=== PATIENT | male | born 1950 | race Two or more races ===

== ENCOUNTER 2024-05-03 09:11 | Inpatient (IN) | payer OTHER ==
[~2024-05-03] VITALS: Ht 165.1 cm; Wt 62.6 kg
[2024-05-03] MEDS ORDERED: TAMS0.4C (09:18)
[2024-05-03] MEDS ORDERED: GLUMETZA500 MG (09:18)
[2024-05-03] MEDS ORDERED: CARVEDILOL6.25 MG (09:18)
[2024-05-03] MEDS ORDERED: COZAAR25 MG (09:18)
[2024-05-03] MEDS ORDERED: XOPENEX HFA15 GM (09:18)
[2024-05-03] MEDS ORDERED: IPRATROPIUM BROMIDE 0.5 MG/2.5 ML AMPUL.NEB IH ONE (09:45)
[2024-05-03] MEDS ORDERED: LEVALBUTEROL HCL 0.63 MG/3 ML SOLUTION IH ONE (09:45)
[2024-05-03] MEDS ORDERED: METHYLPREDNISOLONE SOD SUCC 40 MG VIAL IV ONE (09:45)
[2024-05-03] MEDS ORDERED: PIPERACILLIN/TAZOBACTAM SODIUM 4.5 GM VIAL IV ONE (09:45)
[2024-05-03] MEDS ORDERED: FAMOtidine 10 MG/ML (4ML VIAL) IV ONE (09:45)
[2024-05-03 10:34] LABS: PH,URINE 5.5 (5.0-8.0); URINE APPEARANCE Clear; URINE BILIRRUBIN Negative (NEGATIVE); URINE BLOOD Negative; URINE COLOR Yellow; URINE GLUCOSE Negative (NEGATIVE); URINE KETONE Negative (NEGATIVE); URINE LEUKOCYTE Negative; URINE NITRATE Negative; URINE PROTEIN Negative (NEGATIVE); URINE UROBILINOGEN 0.2 E.U./dl
[2024-05-03 10:36] LABS: HEMATOCRIT 35.3 % (39.0-48.0); HEMOGLOBIN 12.3 g/dL (13-16.00); MEAN CELL VOLUME 88.7 fL (80.0-100.00); MEAN CORPUSCULAR HEMOGLOBIN 30.9 pg (27.00-32.0); MEAN CORPUSCULAR HGB CONC 34.8 g/dl (32.0-36.0); PLATELET COUNT 204 K/uL (150-450); RED BLOOD COUNT 3.98 M/uL (4.00-6.00); RED CELL DISTRIBUTION WIDTH 14.1 % (11.5-14.5)
[2024-05-03 10:38] LABS: URINE BACTERIA 6.2 uL (0.0-1933); URINE EPITHELIAL CELLS 1.5 uL (0.0-38.8); URINE WBC 2.6 uL (0.0-23.2)
[2024-05-03 10:49] LABS: ERYTHROCYTE SEDIMENTATION RATE 42 mm/hr
[2024-05-03 10:56] LABS: INR 1.04; PARTIAL THROMBOPLASTIN TIME 27.6 SECONDS (22.0-34.0); PROTHROMBIN TIME 11.3 SECONDS (9.0-11.5)
[2024-05-03 11:43] LABS: ALBUMIN 3.9 gm/dL (3.4-5.0); BILIRUBIN TOTAL 0.58 mg/dL (0.3-1.2); CALCIUM 9.6 mg/dL (8.5-10.1); CREATININE SERUM 1.48 mg/dL (0.70-1.30); GFR 46.59; GLOBULINA 3.3 G/DL (2.4-3.5); POTASSIUM 4.65 mEq/L (3.5-5.1); TOTAL PROTEIN 7.2 gm/dL (6.4-8.2)
[2024-05-03 11:51] LABS: C-REACTIVE PROTEIN 1.07 MG/DL (0.00-0.29)
[2024-05-03 15:04] LABS: ABG PO2 89.5 mmHg (80-100); ABG pCO2 43.1 mmHg (35-45); BASE EXCESS -0.3 mmol/l; SaO2 96.6 %
[2024-05-03 15:05] LABS: Tco2 26.3 mmol/l; allen test SATISFACTORY; o2 21 %; puncture site RADIAL LEFT
[2024-05-03] MEDS ORDERED: CEFTRIAXONE SODIUM 2,000 MG in 0.9 % SODIUM CHLORIDE 100 ML IV SCH (17:29)
[2024-05-03] MEDS ORDERED: CARVEDILOL 6.25 MG TABLET PO SCH (17:29)
[2024-05-03] MEDS ORDERED: INSULIN LISPRO 1,000 UNIT/10 ML UNITS SUBCUTANEO PRN (17:30)
[2024-05-03] MEDS ORDERED: ACETAMINOPHEN 325 MG TABLET PO SCH (17:30)
[2024-05-03] MEDS ORDERED: DEXTROSE 50 % IN WATER 0.5 G/ML DISP.SYRIN IV PRN (17:30)
[2024-05-03] MEDS ORDERED: LOSARTAN POTASSIUM 50 MG TABLET PO SCH (17:49)
[2024-05-03] MEDS ORDERED: TAMSULOSIN HCL 0.4 MG CAP PO SCH (17:51)
[2024-05-03] MEDS ORDERED: FAMOTIDINE/PF 20 MG in 0.9 % SODIUM CHLORIDE 100 ML IV SCH (17:52)
[2024-05-03] MEDS ORDERED: LEVALBUTEROL HCL 0.63 MG/3 ML SOLUTION IH SCH (17:54)
[2024-05-03] MEDS ORDERED: KETOROLAC TROMETHAMINE 30 MG VIAL IM ONE (18:00)
[2024-05-03] MEDS ORDERED: PIPERACILLIN/TAZOBACTAM SODIUM 4.5 GM in 0.9 % SODIUM CHLORIDE 100 ML IV SCH (18:00)
[2024-05-03] MEDS ORDERED: GUAIFENESIN 100 MG/5 ML BLIST.PACK PO SCH (18:00)
[2024-05-03] MEDS ORDERED: 0.9 % SODIUM CHLORIDE 1,000 ML IV SCH (19:00)
[2024-05-03 22:35] VITALS: BP 145/73; O2SAT 98
[2024-05-04 01:50] VITALS: BP 115/66; O2SAT 99
[2024-05-04 07:18] LABS: HEMATOCRIT 29.7 % (39.0-48.0); MEAN CELL VOLUME 89.5 fL (80.0-100.00); MEAN CORPUSCULAR HEMOGLOBIN 30.2 pg (27.00-32.0); MEAN CORPUSCULAR HGB CONC 33.8 g/dl (32.0-36.0); PLATELET COUNT 182 K/uL (150-450); RED BLOOD COUNT 3.32 M/uL (4.00-6.00); RED CELL DISTRIBUTION WIDTH 13.8 % (11.5-14.5)
[2024-05-04 09:44] VITALS: BP 142/68; O2SAT 97
[2024-05-04 17:08] VITALS: BP 133/71; O2SAT 98
[2024-05-05 01:09] VITALS: BP 139/74; O2SAT 99
== END 2024-05-05 09:58 | disposition home or self-care (01) | DRG 872 ==
LOC: ER 09:13 → MEDJ 18:00
PROVIDERS: General Practice; ADMIT Internal Medicine; ATTEND Internal Medicine
PROC: BW24ZZZ Computerized Tomography (CT Scan) of Chest and Abdomen (ICD-10-PCS; principal; 2024-05-03)
DX: R78.81 Bacteremia (principal); B96.5 Pseudomonas (aeruginosa) (mallei) (pseudomallei) as the cause of diseases classified elsewhere; B96.1 Klebsiella pneumoniae [K. pneumoniae] as the cause of diseases classified elsewhere; I10 Essential (primary) hypertension; E11.9 Type 2 diabetes mellitus without complications; Z79.4 Long term (current) use of insulin; I71.20 Thoracic aortic aneurysm, without rupture, unspecified

== ENCOUNTER 2024-05-21 13:07 | Emergency (ER) | payer OTHER ==
[~2024-05-21] VITALS: Ht 165.1 cm; Wt 62.6 kg
[~2024-05-21 13:07] MED LIST: CARVEDILOL6.25 MG; COZAAR25 MG; GLUMETZA500 MG; TAMS0.4C; XOPENEX HFA15 GM
[2024-05-21] MEDS ORDERED: DEXAMETHASONE SODIUM PHOSPHATE 4 MG/ML VIAL IM STA (14:41)
[2024-05-21] MEDS ORDERED: ORPHENADRINE CITRATE 30 MG/ML AMPUL IM STA (14:41)
[2024-05-21 18:10] LABS: PH,URINE 5.5 (5.0-8.0); URINE APPEARANCE Clear; URINE BILIRRUBIN Negative (NEGATIVE); URINE BLOOD Negative; URINE COLOR Yellow; URINE GLUCOSE Negative (NEGATIVE); URINE KETONE Negative (NEGATIVE); URINE LEUKOCYTE Negative; URINE NITRATE Negative; URINE PROTEIN Negative (NEGATIVE); URINE UROBILINOGEN 0.2 E.U./dl
[2024-05-21 18:11] LABS: HEMATOCRIT 35.9 % (39.0-48.0); MEAN CELL VOLUME 89.8 fL (80.0-100.00); MEAN CORPUSCULAR HEMOGLOBIN 30.2 pg (27.00-32.0); MEAN CORPUSCULAR HGB CONC 33.6 g/dl (32.0-36.0); PLATELET COUNT 211 K/uL (150-450); RED CELL DISTRIBUTION WIDTH 14.2 % (11.5-14.5)
[2024-05-21 18:13] LABS: URINE BACTERIA 4.8 uL (0.0-1933); URINE WBC 2.9 uL (0.0-23.2)
[2024-05-21 18:17] LABS: URINE CAST 0.14 uL (0.0-1.40); URINE EPITHELIAL CELLS 0.4 uL (0.0-38.8); URINE RBC 1.1 uL (0.0-20.8)
== END 2024-05-21 23:01 | disposition home or self-care (01) ==
LOC: ER 13:09
DX: J18.9 Pneumonia, unspecified organism (principal); Z88.1 Allergy status to other antibiotic agents; Z91.041 Radiographic dye allergy status